=== PATIENT | male | born 1935 | race Caucasian/White ===

== ENCOUNTER 2020-07-18 12:39 | Emergency (ER) | payer MEDICARE, OTHER ==
[~2020-07-18] VITALS: Ht 175.3 cm; Wt 72.6 kg
[2020-07-18 13:50] LABS: ABSOLUTE EOSINOPHILS 0.1 thou/uL (0.0-0.7); ABSOLUTE LYMPHOCYTES 0.7 thou/uL (0.8-5.3); ABSOLUTE MONOCYTES 0.4 thou/uL (0.0-1.2); ABSOLUTE NEUTROPHILS 5.4 thou/uL (1.6-8.1); BASOPHILS 0.7 %; EOSINOPHILS 1.2 %; HEMOGLOBIN 12.9 gm/dL (14.0-18.0); LYMPHOCYTES 11.2 %; MCH 30.6 pg (26.0-34.0); MONOCYTES 5.6 %; MPV 7.3 fl. (7.2-11.1); NUCLEATED RBCS 0 /100WBC; PLATELET COUNT* 112 thou/uL (150-400); POLYS 81.3 %; RBC 4.22 mil/uL (4.50-6.00); RDW-CV 13.7 % (10.5-14.5); WBC 6.6 thou/uL (4.0-11.0)
[2020-07-18 13:50] LABS: URINE BILIRUBIN NEGATIVE (Negative); URINE BLOOD NEGATIVE (Negative); URINE CLARITY CLEAR; URINE COLOR YELLOW; URINE GLUCOSE-RANDOM NEGATIVE (Negative); URINE KETONES NEGATIVE (Negative); URINE LEUKOCYTES-REFLEX TRACE (Negative); URINE NITRITE-REFLEX NEGATIVE (Negative); URINE PROTEIN NEGATIVE (Negative); URINE SPECIFIC GRAVITY 1.025 (1.005-1.030); URINE UROBILINOGEN 0.2 E.U./dl (0.2-1.0)
[2020-07-18 14:00] LABS: CASTS None Seen /LPF (None Seen); CRYSTALS None Seen /LPF (None Seen); MUCUS 0-3 Light strn/LPF (None Seen); SQUAMOUS 0-3 Few /LPF (0-3); URINE RBC 0-2 Rare /HPF (0-2); URINE WBC-REFLEX 0-5 Rare /HPF (0-5)
[2020-07-18 14:07] LABS: CALCIUM 8.1 mg/dL (8.5-10.1); CREATININE 1.4 mg/dL (0.6-1.3)
[2020-07-18 14:11] LABS: ALBUMIN 3.6 g/dL (3.4-5.0); TOTAL BILIRUBIN 0.4 mg/dL (<0.1-1.0); TOTAL PROTEIN 7.1 g/dL (6.4-8.2)
[2020-07-18] MEDS ORDERED: BENTYL 10 MG CA10 M1 PO (16:03)
[2020-07-18] MEDS ORDERED: AUGMENTIN 875-1 EACH PO (16:03)
[2020-07-18] MEDS ORDERED: ZOFRAN ODT4 MG PO (16:03)
[2020-07-18 16:32] VITALS: BP 140/69
== END 2020-07-18 16:33 | disposition home or self-care (01) ==
LOC: M.ERS 12:39
PROVIDERS: Nurse Practitioner Family
DX: R33.9 Retention of urine, unspecified (principal); K52.9 Noninfective gastroenteritis and colitis, unspecified; E11.9 Type 2 diabetes mellitus without complications; Z88.2 Allergy status to sulfonamides; Z88.8 Allergy status to other drugs, medicaments and biological substances

== ENCOUNTER 2020-08-05 22:49 | Emergency (ER) | payer MEDICARE, OTHER ==
[~2020-08-05] VITALS: Ht 175.3 cm; Wt 70.3 kg
[~2020-08-05 22:49] MED LIST: AUGMENTIN 875-1 EACH PO; BENTYL 10 MG CA10 M1 PO; ZOFRAN ODT4 MG PO
[2020-08-05 23:51] LABS: URINE BILIRUBIN NEGATIVE (Negative); URINE BLOOD 2+ (Negative); URINE CLARITY SL CLOUDY; URINE COLOR YELLOW; URINE GLUCOSE-RANDOM NEGATIVE (Negative); URINE KETONES NEGATIVE (Negative); URINE LEUKOCYTES-REFLEX 3+ (Negative); URINE NITRITE-REFLEX NEGATIVE (Negative); URINE PROTEIN 2+ (Negative); URINE SPECIFIC GRAVITY 1.015 (1.005-1.030); URINE UROBILINOGEN 0.2 E.U./dl (0.2-1.0)
[2020-08-05 23:52] LABS: BACTERIA-REFLEX >30 Many /HPF (None Seen); CASTS None Seen /LPF (None Seen); CRYSTALS None Seen /LPF (None Seen); MUCUS 4-6 Moderate strn/LPF (None Seen); SQUAMOUS 0-3 Few /LPF (0-3); URINE WBC-REFLEX >25 Many /HPF (0-5); WBC CLUMPS Few (None Seen)
[2020-08-06 00:29] VITALS: BP 126/72
== END 2020-08-06 00:29 | disposition home or self-care (01) ==
LOC: M.ERS 22:49
PROVIDERS: Personal Emergency Response Attendant
DX: T83.038A Leakage of other urinary catheter, initial encounter (principal); E11.9 Type 2 diabetes mellitus without complications; G20 Parkinson's disease; Z79.899 Other long term (current) drug therapy; Z79.2 Long term (current) use of antibiotics; Z88.8 Allergy status to other drugs, medicaments and biological substances; Z88.2 Allergy status to sulfonamides; Y84.8 Other medical procedures as the cause of abnormal reaction of the patient, or of later complication, without mention of misadventure at the time of the procedure; Y92.89 Other specified places as the place of occurrence of the external cause

== ENCOUNTER 2020-08-28 01:53 | Emergency (ER) | payer MEDICARE, OTHER ==
[~2020-08-28] VITALS: Ht 175.3 cm; Wt 72.6 kg
[2020-08-28 02:17] LABS: URINE BILIRUBIN NEGATIVE (Negative); URINE BLOOD 3+ (Negative); URINE CLARITY SL CLOUDY; URINE COLOR ORANGE; URINE GLUCOSE-RANDOM NEGATIVE (Negative); URINE KETONES NEGATIVE (Negative); URINE NITRITE-REFLEX NEGATIVE (Negative); URINE PROTEIN 3+ (Negative); URINE UROBILINOGEN 0.2 E.U./dl (0.2-1.0)
[2020-08-28 02:19] LABS: URINE LEUKOCYTES-REFLEX 3+ (Negative)
[2020-08-28 03:04] LABS: CASTS None Seen /LPF (None Seen); SQUAMOUS 0-3 Few /LPF (0-3); URINE WBC-REFLEX >25 Many /HPF (0-5)
[2020-08-28 03:05] LABS: TRIPLE PHOSPHATE CRYSTALS 0-3 Few /LPF (None Seen); URINE RBC >20 Many /HPF (0-2)
[2020-08-28] MEDS ORDERED: CEFUROXIME500 MG PO (03:21)
[2020-08-28 03:39] VITALS: BP 155/68
== END 2020-08-28 03:39 | disposition home or self-care (01) ==
LOC: M.ERS 01:53
PROVIDERS: Emergency Medicine
DX: T83.098A Other mechanical complication of other urinary catheter, initial encounter (principal); E11.9 Type 2 diabetes mellitus without complications; Z88.2 Allergy status to sulfonamides; Z88.8 Allergy status to other drugs, medicaments and biological substances; Y84.8 Other medical procedures as the cause of abnormal reaction of the patient, or of later complication, without mention of misadventure at the time of the procedure; Y92.89 Other specified places as the place of occurrence of the external cause; Z79.899 Other long term (current) drug therapy

== ENCOUNTER 2020-09-23 00:02 | Emergency (ER) | payer MEDICARE, OTHER ==
[~2020-09-23] VITALS: Ht 175.3 cm; Wt 72.6 kg
[~2020-09-23 00:02] MED LIST changes: +CEFUROXIME500 MG PO
[2020-09-23 00:41] LABS: URINE BILIRUBIN NEGATIVE (Negative); URINE BLOOD TRACE (Negative); URINE CLARITY CLOUDY; URINE COLOR YELLOW; URINE GLUCOSE-RANDOM NEGATIVE (Negative); URINE KETONES NEGATIVE (Negative); URINE LEUKOCYTES-REFLEX 3+ (Negative); URINE NITRITE-REFLEX NEGATIVE (Negative); URINE PROTEIN 3+ (Negative); URINE SPECIFIC GRAVITY 1.015 (1.005-1.030); URINE UROBILINOGEN 0.2 E.U./dl (0.2-1.0)
[2020-09-23 00:55] LABS: SQUAMOUS NONE SEEN /LPF (0-3); TRIPLE PHOSPHATE CRYSTALS 4-10 Moderate /LPF (None Seen)
[2020-09-23 00:56] LABS: MUCUS None Seen strn/LPF (None Seen)
[2020-09-23 00:57] LABS: URINE RBC 0-2 Rare /HPF (0-2); URINE WBC-REFLEX >25 Many /HPF (0-5)
[2020-09-23 00:59] LABS: HYALINE CASTS 0-3 Few /LPF (None Seen)
[2020-09-23] MEDS ORDERED: PYRIDIUM200 MG PO ×2 (01:14→01:17)
[2020-09-23] MEDS ORDERED: CIPRO500 M1 PO ×2 (01:14→01:17)
[2020-09-23] MEDS ORDERED: HYDROCODON-ACE1 EAC8 PO (01:21)
[2020-09-23 01:36] VITALS: BP 163/65
== END 2020-09-23 01:37 | disposition home or self-care (01) ==
LOC: M.ERS 00:02
PROVIDERS: Emergency Medicine
DX: N39.0 Urinary tract infection, site not specified (principal); E11.9 Type 2 diabetes mellitus without complications; Z88.8 Allergy status to other drugs, medicaments and biological substances; Z88.2 Allergy status to sulfonamides